=== PATIENT | female | born 2000 | race Caucasian/White ===

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

== ENCOUNTER 2023-01-19 08:13 | Emergency (ER) | payer BC, SELFPAY ==
[2023-01-19 08:14] VITALS: BP 149/82; PULSE 108; RESP 22; TEMP 35.8; O2SAT 100; BMI 40.3
[2023-01-19 08:20] VITALS: BP 122/106; PULSE 123; RESP 23; TEMP 36.6; O2SAT 99
--- NOTE | 2023-01-19 08:24 | ED.RN ---
Patient state bronchitis for last several days. Started on steroids and cefdinir yesterday and states she does not feel better. Patient able to speak easily in full sentences.
--- NOTE | 2023-01-19 08:43 | EKG12_ITS ---
Test Reason : SOB Blood Pressure : / mmHG Vent. Rate : 089 BPM Atrial Rate : 089 BPM P-R Int : 130 ms QRS Dur : 098 ms QT Int : 364 ms P-R-T Axes : 066 065 027 degrees QTc Int : 442 ms Normal sinus rhythm with sinus arrhythmia RSR' or QR pattern in V1 suggests right ventricular conduction delay Nonspecific T wave abnormality Abnormal ECG No previous ECGs available Confirmed by SEBASTIÁN ANGEL, KVNG ([id number]), book or script editor KEILY OWENS ([id number]) on 01/21/2023 1:59:01 PM Referred By: NATE Confirmed By:KVNG LOWERY MD
--- NOTE | 2023-01-19 08:43 | ED.VIS.DYS ---
HPI History of Present Illness Chief Complaint: Shortness of Breath Informant: patient and spouse/S.O. Narrative Narrative: Presents here with significant other 8-day history symptoms. Initial started sinus congestion mild cough seen urgent care 6 days ago started on prednisone for asthmatic bronchitis with wheezing. Using inhaler. History of exercise-induced asthma. She vapes. Finished her steroid symptoms not improving. Home COVID-negative. Continued cough saw urgent care yesterday started on Omnicef status post 2 doses. Presents today due to persistent worsening symptoms worse with exertion. No recent travel or surgeries. No history of PE or DVT. Vapes and denies being on any control. States no testing performed to urgent care. No recent vomiting or diarrhea. PE Risk Factors: Negative for Cancer, OCP + Smoking + > 35, Prior DVT or PE, Recent immobilization, Recent surgery or Recent travel Prior similar symptoms: No PFSH PFSH Home Medications promethazine 25 mg tablet 12.5 mg (1/2 x 25 mg) PO Q6H PRN PRN Nausea #8 tabs 03/17/17 [Rx Last Taken Unknown] benzonatate 200 mg capsule 200 mg PO TID PRN cough #20 caps 01/19/23 [Rx Last Taken Unknown] prednisone 20 mg tablet 40 mg (2 x 20 mg) PO DAILY #12 TABLETS 01/19/23 [Rx Last Taken Unknown] Allergy/AdvReac Type Severity Reaction Status Date / Time adhesive tape Allergy Hives Verified 03/16/17 23:34 amoxicillin Allergy Hives Verified 03/16/17 23:34 Social History Smoking Status: Current every day smoker tobacco type: e-cigarettes ROS ROS ED Constitutional Constitutional ED: Denies chills, fever(s) or sweats Eyes Eyes: Denies change in vision ENT ENT ED: Reports other Details: Sinus congestion, hearing loss of the left ; Denies dysphagia or sore throat Cardiovascular Cardiovascular: Denies chest pain, leg edema, palpitations or racing heartbeat Respiratory/Chest Respiratory/Chest: Reports cough, dyspnea and dyspnea on exertion Gastrointestinal Gastrointestinal: Denies abdominal pain, diarrhea, nausea or vomiting Genitourinary Genitourinary ED: Denies dysuria, hematuria or urinary frequency Musculoskeletal Musculoskeletal: Denies back pain, extremity pain or neck pain Integumentary Denies rash or wounds Neurologic Neurologic: Denies headache(s), paresthesias or weakness EXAM Physical Exam Const Vital Signs: 01/19/23 08:14 01/19/23 08:20 01/19/23 08:20 Temperature 96.5 F L 97.9 F Temperature Source Temporal Oral Pulse Rate 108 H 123 H Respiratory Rate 22 H 23 H Respiratory Effort Normal Blood Pressure 149/82 H 122/106 H Blood Pressure Mean 104 111 Pulse Ox 100 99 Oxygen Delivery Method Room Air Room Air Room Air Positive well nourished and well developed Constitutional Narrative: Nontoxic frequent coughing up with its General Appearance ED: well developed and NAD HEENT Reports TM's clear and moist mucous membranes HEENT Narrative: TMs normal bilaterally no fluid no exudates. Sinus tenderness frontal maxillary. No posterior pharyngeal erythema tonsils absent. normocephalic and atraumatic Tympanic Membrane ED: Yes TM's clear Eyes PERRL, EOMs intact bilaterally and conjunctivae normal General Eye ED: Yes normal appearance of both eyes Neck no lymphadenopathy and supple General: Negative for tenderness Chest Wall Chest: Negative for tenderness Resp normal respiratory effort and normal air movement Effort and Inspection: symmetric chest movement; Negative for respiratory distress Cardio regular rhythm and no murmurs Rate: tachycardic Peripheral Pulses: pulses 2+ throughout GI normal to inspection, nondistended, normoactive bowel sounds and non-tender Palpation: Negative for guarding or rebound tenderness present Back/Spine no CVA tenderness and no thoracic nor lumbar tenderness Extremity normal to inspection General Extremety ED: Negative for edema or tenderness General Extremity: Negative for edema Neuro oriented x3 and no sensory deficits noted Sensorium / Orientation: awake and alert Skin no rashes or lesions noted and no wounds MDM MDM MDM Narrative Medical decision making narrative: Interventions / MDM: Differential diagnosis: Viral syndrome Diagnosis considered but do not suspect: Pulm embolism however D-dimer negative, pneumonia however chest x-ray negative. My EKG interpretation: EKG: Sinus rate of 89, no ST changes, T wave inversions anterior leads. Imaging independently reviewed and interpreted by myself: 2 view chest: No process. External documents reviewed: N/A Test considered but not ordered:N/A ED course: Patient presenting with tachycardia pulse ox on percent. She has been coughing reporting increasing symptoms since symptoms started. Low risk Wells criteria for PE. D-dimer ordered. EKG with T wave version anterior leads no old for comparison. I did add a troponin. She has chest pains with cough. Labs with leukocytosis of 17 recent airway use. D-dimer negative troponin. Two-view chest x-ray ordered, no infiltrates. She is reassured discussed viral syndrome. Discussed continue adjunct treatments for cough symptoms. Robel Wade, steroids continued due to her asthma history. Outpatient follow-up. Return precautions. Re-evaluation: stable Disposition discussed with patient/family/significant other: Patient and significant other Case discussed with consulting clinician: N/A This note was generated with [employer] dictation software. It may contain incorrect words, spelling, and punctuation that were not noted in checking the note before signing. Lab Data Attestation: I reviewed the patient's lab results. Labs: Laboratory Results - last 24 hr 01/19/23 08:51 WBC 17.0 H RBC 4.75 Hgb 12.8 Hct 40.3 MCV 84.8 MCH 26.9 L MCHC 31.8 L RDW Std Deviation 42.8 RDW Coeff of Nico 13.7 Plt Count 402 MPV 9.9 Immature Gran % (Auto) 1.000 H Neut % (Auto) 63.9 Lymph % (Auto) 26.8 Boyd % (Auto) 7.4 Eos % (Auto) 0.6 Baso % (Auto) 0.3 Absolute Neuts (auto) 10.8 H Absolute Lymphs (auto) 4.54 H Nucleated RBC % 0 D-Dimer Quant (PE/DVT) 0.43 Sodium 140 Potassium 2.9 L Chloride 108 H Carbon Dioxide 24.0 Anion Gap 8 BUN 9 Creatinine 0.92 Estim Creat Clear Calc 91.31 Est GFR (MDRD) Af Amer 99 Est GFR (MDRD) Non-Af 82 BUN/Creatinine Ratio 9.8 L Glucose 115 H Calcium 8.8 Troponin I High Sens 4 Serum , Qual NEGATIVE Radiography Diagnostic Testing: Clinical Impression(s) from Imaging Studies Chest X-Ray 01/19/23 09:25 IMPRESSION: Normal x-ray examination of the chest. Electronically Signed: Dane Luna MD at 10:40 EDT , Discharge Plan Triage Chief Complaint: Shortness of Breath ED Provider: Johann Clancy Dx/Rx/DC Orders Clinical Impression: Asthma exacerbation, Bronchitis Instructions: ED Bronchitis with Wheezing (Adult), Asthma Prescriptions: New benzonatate 200 mg capsule 200 mg PO TID PRN (Reason: cough) Qty: 20 0RF prednisone 20 mg tablet 40 mg PO DAILY Qty: 12 0RF No Action promethazine 25 MG tablet 12.5 mg PO Q6H PRN PRN (Reason: Nausea) Qty: 8 0RF Stand Alone Forms: ED Work / School Excuse Primary Care Provider: Julia Harris Referrals: Julia Harris MD [Primary Care Provider] - 1 Week Activity Restrictions/Additional Instructions: Chest x-ray negative today. Labs including D-dimer negative and troponin negative. Continue oral fluids. Continue your vapor rub and humidifier at home. Cough suppressants as prescribed. Steroids as prescribed with your asthma history. You may choose to continue your antibiotics as this will not likely help due to viral nature. Follow-up with your doctor. Disposition Disposition: Home, Self Care Discharge Date/Time: 01/19/23 11:21
--- NOTE | 2023-01-19 08:46 | NURSING ---
NO OLD EKGS
[2023-01-19 09:05] LABS: Absolute Lymphocyte Count 4.54 X10^3/uL (0.83-4.51); Absolute Neutrophil Count 10.8 X10^3/uL (2.0-7.7); Basophil# 0.05 X10^3/uL; Basophil% 0.3 % (0-1); Eosinophil# 0.11 X10^3/uL; Eosinophils% 0.6 % (0-5); Hematocrit 40.3 % (37-47); Hemoglobin 12.8 g/dL (12.0-15.0); Lymphocyte # 4.54 X10^3/ul (0.83-4.51); Lymphocyte % 26.8 % (19-41); Mean Corp Hgb Conc 31.8 g/dL (32-36); Mean Corpuscular Hgb 26.9 pg (27.0-32.0); Mean Corpuscular Volume 84.8 fL (81-99); Mean Platelet Vol. 9.9 fl (6.2-12.0); Monocyte# 1.25 X10^3/uL; Monocyte% 7.4 % (0-10); NRBC Flagged by Analyzer 0 % (0-5); Neutrophil # 10.83 X10^3/uL (2.7-7.7); Neutrophil % 63.9 % (47-70); Platelet Count 402 K/mm3 (150-450); RBC Distribution Width CV 13.7 % (11.6-14.6); RBC Distribution Width SD 42.8 fl (35.1-43.9); Red Blood Count 4.75 M/mm3 (4.2-5.4)
[2023-01-19 09:18] LABS: Internal QC Validated? YES +Cl - CLEAR BKGD; Pregnancy, Serum, hCG Quali. NEGATIVE Negative
[2023-01-19 09:19] LABS: D-Dimer Quantitative (DVT/PE) 0.43 FEU/ug/m (0.27-0.49)
[2023-01-19 09:22] LABS: Anion Gap 8 (5-15); BUN 9 mg/dL (7-18); BUN/Creat Ratio 9.8 RATIO (10-20); Calcium,Total 8.8 mg/dL (8.5-10.1); Chloride 108 mmol/L (98-107); Creatinine, Serum 0.92 mg/dL (0.55-1.02); EST Glomerular Filtration Rate 82 mL/min (>60); Est Glom Filt Rate - Afr Amer 99 mL/min (>60); Estimated Creatinine Clearance 91.31 ml/min; Glucose 115 mg/dL (74-106); Potassium 2.9 mmol/L (3.5-5.1); Sodium Level 140 mmol/L (136-145)
--- NOTE | 2023-01-19 09:25 | RAD_ITS ---
STUDY: X-RAY CHEST REASON FOR EXAM: Female, 22 years old. Cough. TECHNIQUE: Frontal and lateral views of the chest. COMPARISON: None. FINDINGS: The lungs are clear and expanded. There is no demonstrated pleural abnormality. Normal size heart. Normal mediastinum and marisa. Normal visualized pulmonary arteries. Normal visualized aortic arch and descending thoracic aorta. Normal visualized thoracic spine. Normal visualized ribs, clavicles, and shoulders. There is no demonstrated abnormality of the visualized soft tissue structures of the upper abdomen. RAD/Chest PA and Lateral IMPRESSION: Normal x-ray examination of the chest. Electronically Signed: Dane Luna MD at 10:40 EDT ,
[2023-01-19] MEDS: 0.9% Normal Saline (500mL Bag) 500 ML 1000 ML IV (09:35)
[2023-01-19] MEDS: Potassium Chloride Oral Tablet 20 MEQ 40 MEQ PO (09:35)
[2023-01-19 10:06] LABS: Troponin-I HS 4 pg/mL (3.0-54.0)
[2023-01-19] MEDS: Ibuprofen 600 MG Tablet PO (11:18)
[2023-01-19] MEDS: predniSONE 20 MG Tablet 40 MG PO (11:19)
== END 2023-01-19 11:21 | disposition home or self-care (01) ==
PROVIDERS: Emergency Provider Emergency Medicine; PCP Pediatrics; Visit Provider Emergency Medicine
DX: J45.901 Unspecified asthma with (acute) exacerbation (principal); F17.290 Nicotine dependence, other tobacco product, uncomplicated
CPT/HCPCS: 71046; 80048; 84484; 84703; 85025; 85379; 93005; 99285; J7040; A4216

== ENCOUNTER → 2023-04-09 | Outpatient (CLI) | payer BC, SELFPAY ==
--- OUTSIDE RECORDS SUMMARY | 2023-04-09 15:32 | XMS RPT_ITS | CCD ---
Author Name Unknown Address [address] [place] [address] [address] [place] [id number] Organization [facility] Care Team Providers Care Tester Sound Name Role Phone Jen Tierney MD Primary Care Provider JEN TIERNEY Primary Care Unavailable JEN TIERNEY Primary Care Unavailable JEN TIERNEY Attending Unavailable REFERRED, SELF Referring Unavailable JEN TIERNEY Primary Care Unavailable JEN TIERNEY Primary Care Unavailable JEN TIERNEY Attending Unavailable REFERRED, SELF Referring Unavailable JEN TIERNEY Attending Unavailable JEN TIERNEY Referring Unavailable JEN TIERNEY Primary Care Unavailable JEN TIERNEY Attending Unavailable JEN TIERNEY Primary Care Unavailable REFERRED, SELF Referring Unavailable Allergies Allergy Classification Reported Allergen(s) Allergy Type Date of Onset Reaction(s) Facility (3 sources) Amoxicillin; Translations: [AMOXICILLIN] Drug Allergy 2 [facility] (2 sources) Penicillins Propensity to adverse reactions to drug 2 [facility] Work Phone: (1 source) WOUND DRESSING ADHESIVE; Translations: [WOUND DRESSING ADHESIVE] Propensity to adverse reactions to drug (disorder) [facility] Repository Medications Current Medications Medication Drug Class(es) Dates Sig (Normalized) Sig (Original) Albuterol (1 source) beta2-Adrenergic Agonist ALBUTEROL IN Inhale into the lungs 0 Active dextromethorphan hydrobromide 3 mg/ml / promethazine hydrochloride 1.25 mg/ml oral solution (1 source) Phenothiazine, Uncompetitive C-ezndjt-U-aspartate Receptor Antagonist, Sigma-1 Agonist Start: 06-14-2022 End: 06-21-2022 promethazine-dex tromethorphan (PROMETHAZINE-DM ) 6.25-15 MG/5ML syrup Take 5 mLs by mouth 4 times daily as needed for Cough 120 mL 0 06/14/2022 06/21/2022 Active guaiFENesin 400 mg oral tablet (1 source) take 1 tablet by mouth four times daily as needed for cough guaiFENesin 400 MG tablet Take 400 mg by mouth 4 times daily as needed for Cough 0 Active ibuprofen 600 mg oral tablet (2 sources) Nonsteroidal Anti-inflammatory Drug Start: 01-26-2022 take 1 tablet by mouth four times daily as needed for pain ibuprofen (ADVIL;MOTRIN) 600 MG tablet Take 1 tablet by mouth 4 times daily as needed for Pain 60 tablet 0 01/26/2022 Active predniSONE 20 mg oral tablet (1 source) Start: 06-14-2022 End: 06-21-2022 take 1 tablet by mouth once daily predniSONE (DELTASONE) 20 MG tablet Take 1 tablet by mouth daily for 7 days 7 tablet 0 06/14/2022 06/21/2022 Active 24 hr venlafaxine 150 mg extended release oral capsule (2 sources) Serotonin and Norepinephrine Reuptake Inhibitor take 1 capsule by mouth once daily venlafaxine (EFFEXOR XR) 150 MG extended release capsule Take 150 mg by mouth daily 0 Active Problems Active Problems Problem Classification Problem Date Documented Da te Episodic/Chronic Asthma (2 sources) Asthmatic bronchitis; Translations: [Unspecified asthma, uncomplicated] Onset: 06-14-2022 Chronic Past or Other Problems Problem Classification Problem Date Documented Da te Episodic/Chronic Other upper respiratory infections (2 sources) Viral pharyngitis; Translations: [Acute pharyngitis, unspecified] Onset: 01-26-2022 Episodic Results Test Name Value Interpretation Reference Range Facil ity Vital Signs Date Time Vital Sign Value Performing Clinician Faci lity 06-14-2022 17:07-0400 Body height 167.6 cm Jen Tierney MD Work Phone: [email or web address] 06-14-2022 17:07-0400 Body mass index (BMI) [Ratio] 34.22 kg/m2 Jen Tierney MD Work Phone: [email or web address] 06-14-2022 17:07-0400 Body temperature 97.9 [degF] Jen Tierney MD Work Phone: [email or web address] 06-14-2022 17:07-0400 Body weight 96.16 kg Jen Tierney MD Work Phone: [email or web address] 06-14-2022 17:07-0400 Diastolic blood pressure 83 mm[Hg] Jen Tierney MD Work Phone: [email or web address] 06-14-2022 17:07-0400 Heart rate 108 /min Jen Tierney MD Work Phone: [email or web address] 06-14-2022 17:07-0400 Respiratory rate 18 /min Jen Tierney MD Work Phone: [email or web address] 06-14-2022 17:07-0400 SaO2% (BldA) [Mass fraction] 96 % Jen Tierney MD Work Phone: [email or web address] 06-14-2022 17:07-0400 Systolic blood pressure 151 mm[Hg] Jen Tierney MD Work Phone: [email or web address] 01-26-2022 15:58-0400 Body height 167.6 cm Jen Tierney MD Work Phone: [email or web address] 01-26-2022 15:58-0400 Body mass index (BMI) [Ratio] 32.28 kg/m2 Jen Tierney MD Work Phone: [email or web address] 01-26-2022 15:58-0400 Body temperature 98.49 [degF] Jen Tierney MD Work Phone: [email or web address] 01-26-2022 15:58-0400 Body weight 90.72 kg Jen Tierney MD Work Phone: [email or web address] 01-26-2022 15:58-0400 Diastolic blood pressure 80 mm[Hg] Jen Tierney MD Work Phone: [email or web address] 01-26-2022 15:58-0400 Heart rate 80 /min Jen Tierney MD Work Phone: [email or web address] 01-26-2022 15:58-0400 Respiratory rate 16 /min Jen Tierney MD Work Phone: [facility] 01-26-2022 15:58-0400 SaO2% (BldA) [Mass fraction] 99 % Jen Tierney MD Work Phone: [facility] 01-26-2022 15:58-0400 Systolic blood pressure 137 mm[Hg] Jen Tierney MD Work Phone: [facility] Encounters Encounter Date Encounter Type Care Provider Facility Start: 07-29-2022 End: 07-29-2022 ambulatory JEN TIERNEY [facility] Start: 06-14-2022 End: 06-14-2022 Emergency department patient visit JEN Jackson TIERNEY [facility] Start: 06-14-2022 End: 06-14-2022 Office outpatient visit 15 minutes Jen Tierney MD Work Phone: [facility] Procedures Date Procedure Procedure Detail Performing Clinician Start: 01-26-2022 STREP A ANTIGEN [facility] Ed Physician MD Start: 01-26-2022 Cul prsmptv pthgnc o rganism scrn w/col[place] estimj [facility] Ed Physician MD Plan of Treatment Date Care Activity Detail Author Start: 02-21-2024 DTaP/Tdap/Td vaccine (7 - Td or Tdap) DTaP/Tdap/Td vaccine (7 - Td or Tdap) [facility] Start: 11-03-2021 Influenza vaccination Flu vaccine (# 1) [facility] Start: 08-25-2020 COVID-19 Vaccine (2 - Pfizer series) COVID-19 Vaccine (2 - Pfizer series) [facility] End: 01-26-2022 Culture, Throat [facility] Payers Date Payer Category Payer Unknown [id number] 2014 Unknown [id number] 2002 Unknown [id number] 2.16. [id number] 2002 Unknown [id number] 2.16. [id number] 2002 Unknown [id number] 2.16. [id number] 2002 Unknown [id number] 2.16. [id number] 2002 Unknown [id number] 2.16. [id number] 2002 Unknown [id number] 2.16. [id number] Private Health Insurance [id number] Social History Date Type Detail Facility Start: 01-26-2022 Tobacco smoking status TNIS Never smoked tobacco [employer] Phone: Start: 01-26-2022 End: 06-14-2022 Tobacco use and exposure Smokeless tobacco non-user [employer] Phone: Start: 01-26-2022 End: 06-14-2022 Alcohol intake Current drinker of alcohol (finding) [employer] Phone: Start: 01-26-2022 Alcohol Comment social [employer] Phone: Start: 2002 Sex Assigned At Not on file [employer] Phone: Start: 01-16-2022 End: 06-14-2022 Exposure to SARS-CoV-2 (event) Not sure [employer] Phone: Start: 06-14-2022 Tobacco smoking status TNIS Smokes tobacco daily [employer] Phone: History of tobacco use Tobacco Use Types Packs/Day Years Used Date Smoking Tobacco: Every Day E-Cigarettes Passive Smoke Exposure: Never Smokeless Tobacco: Never [employer] Phone: NEGATED: Highlighted rowStart: SOTERO History of tobacco use Passive smoker [employer] Phone: Hospital Discharge instructions 01-26-2022 Discharge Instructions Note Date & Type Note Facility 01-26-2022 Hospital Discharg e instructions DALE Cardoza CNP - 01/26/2022 4:32 PM EDT Go to ER for worsening symptoms, chest pain, inability to keep liquids down, inability to urinate for greater than 8 hours or difficulty breathing. Follow-up with your primary care provider. May take Tylenol or ibuprofen as needed for pain or fever. Increase oral fluid intake. documented in this encounter [employer] Phone: Evaluation note Note Date & Type Note Facility documented in this encounter [employer] Phone: Evaluation note Note Date & Type Note Facility documented in this encounter [employer] Phone: Hospital Discharge instructions Attachments Note Date & Type Note Facility Hospital Discharge instructions The following attachments cannot be sent through Care Everywhere.Asthma: General Info (Chinese)documented in this encounter [employer] Phone: Summary Purpose Family History No Family History Records FoundNo Family History Records Found Advance Directives No Advanced Directives Records FoundNo Advanced Directives Records Found Additional Source Comments Reason for Visit (unrecogniz ed section and content) Reason Comments Cough Pharyngitis Nasal Congestion Headache Watery eyes sinus pr essure Ordered Prescriptions (unrec ognized section and content) Prescription Sig Dispensed Refills Start Date End Da te promethazine-dextromethor marrero (PROMETHAZINE-DM) 6.25-15 MG/5ML syrup Take 5 mLs by mouth 4 times daily as needed for Cough 120 mL 0 06/14/2022 06/21/2022 predniSONE (DELTASONE) 20 MG tablet Take 1 tablet by mouth daily for 7 days 7 tablet 0 06/14/2022 06/21/2022 Care Teams (unrecognized sec tion and content) Tester Sound Relationship Specialty Start Date End Date Jen Tierney MD [facility] [place] [id number] PCP - General Pediatrics 01/26/22 INFORMATION SOURCE (unrecogn ized section and content) DATE CREATED AUTHOR AUTHOR'S BEATA REHANADOMINGUEZ 07/30/2022 [facility] FOR RECORDS PERTAINING TO PATIENTS WHO ARE OR HAVE BEEN ENROLLED IN A CHEMICAL DEPENDENCY/SUBSTANCEABUSE PROGRAM, SOME INFORMATION MAY BE OMITTED. This clinical summary was aggregated from multiple sources. Caution should be exercised in using it in the provision of clinical care. This summary normalizes information from multiple sources, and as a consequence, information in this document may materially change the coding, format and clinical context of patient data. In addition, data may be omitted in some cases. CLINICAL DECISIONS SHOULD BE BASED ON THE PRIMARY CLINICAL RECORDS. [employer] provides no warranty or guarantee of the accuracy or completeness of information in this document.
== END | disposition home or self-care (01) ==
LOC: LABSPEC 15:14
PROVIDERS: PCP Pediatrics; Referring Provider Otolaryngology; Visit Provider Otolaryngology
DX: J01.90 Acute sinusitis, unspecified (principal)
CPT/HCPCS: 87070; 87205